=== PATIENT | female | born 1965 | race Asian ===

== ENCOUNTER 2021-06-28 00:10 | Emergency (ER) | payer MEDICAID, OTHER ==
[~2021-06-28] VITALS: Ht 167.6 cm; Wt 69.4 kg
[2021-06-28 00:15] VITALS: BP 157/98
--- NOTE | 2021-06-28 00:24 | NUR ---
PT AMBULATORY TO LOBBY TO A.W BED. URINE SPECIMEN COLLECTED
--- NOTE | 2021-06-28 00:44 | NUR ---
PT AMBULATED TO BED 9 WITH STEADY GAIT.
--- NOTE | 2021-06-28 00:46 | NUR ---
56 YO F BIB SELF WITH C/C OF ABD PAIN X2 DAYS 08/27. PT STATED PAIN RADIATES UP AND DOWN ABD AND SHE FEELS LIKE SHE NEEDS TO HAVE A BM. LAST BM WAS YESTERDAY. PT'S ABD IS DISTENDED, BOWEL SOUNDS PRESENT, DECREASED. DENIES TAKING MEDICATION. DENIES N/V/D. HX: DENIES RX: DENIES NKA
[2021-06-28 01:30] LABS: BASOPHILS % (AUTO) 0.3 % (0.0-2.0); EOSINOPHILS # (AUTO) 0.1 K/uL (0-0.4); EOSINOPHILS % (AUTO) 0.9 % (0.0-4.0); HEMATOCRIT 38.8 % (36-48); HEMOGLOBIN 12.7 g/dL (12.0-16.0); LYMPHOCYTES # (AUTO) 1.3 K/uL (2.5-16.5); LYMPHOCYTES % (AUTO) 8.6 % (20.5-51.1); MEAN CORPUSCULAR HEMOGLOBIN 28 pg (27-31); MEAN CORPUSCULAR HGB CONC 33 g/dL (33-37); MEAN CORPUSCULAR VOLUME 84.4 fL (80-94); MONOCYTES # (AUTO) 1.7 K/uL (0.8-1.0); MONOCYTES % (AUTO) 11.2 % (1.7-9.3); NEUTROPHILS # (AUTO) 11.9 K/uL (1.8-7.7); PLATELET COUNT (AUTO) 255 K/uL (140-450); RED CELL DISTRIBUTION WIDTH 13.1 % (11.6-13.7)
[2021-06-28 01:46] LABS: ALBUMIN 3.8 g/dL (3.4-5.0); ANION GAP 10.8 (8-16); CARBON DIOXIDE 29.5 mmol/L (21-32); CREATININE 0.9 mg/dL (0.6-1.3); POTASSIUM 4.3 mmol/L (3.5-5.1); TOTAL BILIRUBIN 0.8 mg/dL (0.0-1.0)
--- NOTE | 2021-06-28 01:48 | NUR ---
PT IS SITTING UP IN BED, IN STABLE CONDITION. BED LOCKED IN LOWEST POSITION, SIDE RAILS X1. ALL NEEDS MET AT THIS TIME.
--- NOTE | 2021-06-28 02:16 | NUR ---
PT TAKEN TO CT VIA WHEEL CHAIR.
--- NOTE | 2021-06-28 03:36 | NUR ---
PT IS SLEEPING. EQUAL RISE AND FALL OF CHEST WALL. OPENS TO SOUND. ALL NEEDS MET AT THIS TIME. BED LOCKED IN LOWEST POSITION, SIDE RAILS X1.
[2021-06-28] MEDS ORDERED: HYDR-5080 PO (05:59)
[2021-06-28] MEDS ORDERED: SULF-58 PO (05:59)
[2021-06-28 06:22] VITALS: BP 145/93
--- NOTE | 2021-06-28 06:22 | NUR ---
Patient discharged with v/s stable. Written and verbal after care instructions given and explained. Patient alert, oriented and verbalized understanding of instructions. Ambulatory with steady gait. All questions addressed prior to discharge. ID band removed. Patient advised to follow up with PMD. Rx of norco and bactrim given. Patient educated on indication of medication including possible reaction and side effects. Opportunity to ask questions provided and answered.
== END 2021-06-28 06:22 | disposition home or self-care (01) ==
LOC: MED 00:10
DX: K57.92 Diverticulitis of intestine, part unspecified, without perforation or abscess without bleeding (principal); R11.0 Nausea
CPT/HCPCS: 36415; 80053; 81002; 81025; 83690; 84484; 85025; 93005; 99285

== ENCOUNTER 2021-09-30 15:29 | Emergency (ER) | payer OTHER ==
[~2021-09-30] VITALS: Ht 167.6 cm; Wt 68.0 kg
[~2021-09-30 15:29] MED LIST: HYDR-5080 PO; SULF-58 PO
[2021-09-30 15:35] VITALS: BP 157/104
--- NOTE | 2021-09-30 15:49 | NUR ---
PT AMBULATED TO BED 04
--- NOTE | 2021-09-30 16:00 | NUR ---
pt c/o dysuria, frequency and hematuria since this am with pelvic pain. ua collected. pending er md dominguez.
--- NOTE | 2021-09-30 16:18 | NUR ---
ELEVATOR OPERATOR FREIGHT AT PT BEDSIDE FOR FURTHER EVALUATION.
[2021-09-30 16:27] LABS: BASOPHILS % (AUTO) 0.2 % (0.0-2.0); EOSINOPHILS # (AUTO) 0.1 K/uL (0-0.4); HEMATOCRIT 38.2 % (36-48); HEMOGLOBIN 12.6 g/dL (12.0-16.0); LYMPHOCYTES # (AUTO) 1.5 K/uL (2.5-16.5); LYMPHOCYTES % (AUTO) 12.9 % (20.5-51.1); MEAN CORPUSCULAR HEMOGLOBIN 27 pg (27-31); MEAN CORPUSCULAR HGB CONC 33 g/dL (33-37); MEAN CORPUSCULAR VOLUME 83.3 fL (80-94); MONOCYTES # (AUTO) 0.8 K/uL (0.8-1.0); MONOCYTES % (AUTO) 6.9 % (1.7-9.3); PLATELET COUNT (AUTO) 258 K/uL (140-450); RED BLOOD CELL COUNT(AUTO) 4.59 MIL/uL (4.20-5.40); RED CELL DISTRIBUTION WIDTH 13.2 % (11.6-13.7); WHITE BLOOD COUNT (AUTO) 11.4 K/uL (4.8-10.8)
[2021-09-30 16:30] LABS: APPEARANCE,URINE CLEAR (CLEAR); BILIRUBIN,URINE NEGATIVE (NEGATIVE); BLOOD, URINE 3+ (NEGATIVE); COLOR,URINE AMBER (YELLOW); LEUKOCYTE ESTERASE ,URINE 2+ (NEGATIVE); NITRITE, URINE POSITIVE (NEGATIVE); PH,URINE 6.5 (5.0-9.0); UGLUCOSE NEGATIVE (NEGATIVE)
--- NOTE | 2021-09-30 16:35 | NUR ---
US TECH AT PT BEDSIDE.
[2021-09-30 17:05] LABS: ANION GAP 11.1 (8-16); CARBON DIOXIDE 29.8 mmol/L (21-32); CREATININE 0.8 mg/dL (0.6-1.3); POTASSIUM 3.9 mmol/L (3.5-5.1); TOTAL BILIRUBIN 0.8 mg/dL (0.0-1.0)
[2021-09-30 17:27] LABS: RBC,URINE 50-80 /HPF (0-5); WBC,URINE 60-80 /HPF (0-5)
--- NOTE | 2021-09-30 18:18 | NUR ---
pt pending dispo. nad.
[2021-09-30] MEDS ORDERED: IBUP-2213 PO (18:40)
[2021-09-30] MEDS ORDERED: CEPH-588 PO (18:40)
[2021-09-30] MEDS ORDERED: cephALEXin 500 MG CAP PO ONE (18:45)
--- NOTE | 2021-09-30 18:50 | NUR ---
pt verbalizes dc instructions. no acute distress noted. stable on dc.
[2021-09-30 18:51] VITALS: BP 111/65
== END 2021-09-30 18:50 | disposition home or self-care (01) ==
LOC: MED 15:29
DX: N95.0 Postmenopausal bleeding (principal); D25.9 Leiomyoma of uterus, unspecified; R93.89 Abnormal findings on diagnostic imaging of other specified body structures; N39.0 Urinary tract infection, site not specified; D72.829 Elevated white blood cell count, unspecified; Z79.1 Long term (current) use of non-steroidal anti-inflammatories (NSAID); Z79.2 Long term (current) use of antibiotics; Z79.891 Long term (current) use of opiate analgesic
CPT/HCPCS: 36415; 76856; 80053; 81001; 84703; 85025; 87086; 99284; Q0092

== ENCOUNTER 2022-04-15 23:09 | Emergency (ER) | payer OTHER ==
[~2022-04-15] VITALS: Ht 167.6 cm; Wt 66.7 kg
[~2022-04-15 23:09] MED LIST changes: +CEPH-588 PO; +IBUP-2213 PO
[2022-04-15 23:20] VITALS: BP 135/81
--- NOTE | 2022-04-15 23:23 | NUR ---
KIM SARKAR EXAMINING PATIENT IN TRIAGE
[2022-04-15] MEDS ORDERED: MORPHINE SULFATE 4 MG/ML SYR IVP ONE (23:25)
[2022-04-15] MEDS ORDERED: ONDANSETRON 4 MG/2 ML VIAL IVP ONE (23:25)
--- NOTE | 2022-04-15 23:25 | NUR ---
PATIENT TO BED 6
--- NOTE | 2022-04-15 23:31 | NUR ---
57 yo/f presents to ed w c/o LLQ abdominal pain 810 non-rad intermitent x3 days worse upon palpation or movement, + diarrhea w slight blood. Pt denies any chest pain, sob, fevers/chills, n/v.pt pplaced in gown, breathing even and unlabored. will continue to monitor. pmh: denies allergies: denies
--- NOTE | 2022-04-15 23:31 | NUR ---
DEV MANAGER AT BEDSIDE
[2022-04-15 23:41] LABS: BASOPHILS % (AUTO) 0.3 % (0.0-2.0); EOSINOPHILS # (AUTO) 0.1 K/uL (0-0.4); EOSINOPHILS % (AUTO) 0.7 % (0.0-4.0); HEMATOCRIT 40.2 % (36-48); HEMOGLOBIN 13.2 g/dL (12.0-16.0); LYMPHOCYTES # (AUTO) 1.5 K/uL (2.5-16.5); LYMPHOCYTES % (AUTO) 10.7 % (20.5-51.1); MEAN CORPUSCULAR HEMOGLOBIN 27 pg (27-31); MEAN CORPUSCULAR HGB CONC 33 g/dL (33-37); MEAN CORPUSCULAR VOLUME 82.8 fL (80-94); MONOCYTES # (AUTO) 1.1 K/uL (0.8-1.0); MONOCYTES % (AUTO) 8.1 % (1.7-9.3); NEUTROPHILS # (AUTO) 11.4 K/uL (1.8-7.7); NEUTROPHILS % (AUTO) 80.2 % (42.2-75.2); PLATELET COUNT (AUTO) 345 K/uL (140-450); RED BLOOD CELL COUNT(AUTO) 4.86 MIL/uL (4.20-5.40); WHITE BLOOD COUNT (AUTO) 14.2 K/uL (4.8-10.8)
--- NOTE | 2022-04-15 23:41 | NUR ---
pt to ct via wheelchair.
[2022-04-15 23:55] LABS: ALBUMIN 4.1 g/dL (3.4-5.0); CARBON DIOXIDE 26.7 mmol/L (21-32); CREATININE 0.8 mg/dL (0.6-1.3); POTASSIUM 3.7 mmol/L (3.5-5.1); TOTAL BILIRUBIN 0.8 mg/dL (0.0-1.0)
--- NOTE | 2022-04-16 00:08 | NUR ---
pt unable to provide urine. will attempt soon.
--- NOTE | 2022-04-16 01:03 | NUR ---
pt reports pain is improving, will continue to monitor.
[2022-04-16] MEDS ORDERED: metroNIDAZOLE 500 MG/NS PREMIX 100 ML IV ONE (01:05)
[2022-04-16] MEDS ORDERED: LEVOFLOXACIN 500 MG/D5W PREMIX 100 ML IV ONE ×2 (01:05→03:16)
--- NOTE | 2022-04-16 01:10 | NUR ---
Dr. Solo examining patient.
[2022-04-16 01:13] LABS: APPEARANCE,URINE CLEAR (CLEAR); BILIRUBIN,URINE NEGATIVE (NEGATIVE); BLOOD, URINE 3+ (NEGATIVE); COLOR,URINE YELLOW (YELLOW); LEUKOCYTE ESTERASE ,URINE NEGATIVE (NEGATIVE); NITRITE, URINE NEGATIVE (NEGATIVE); UGLUCOSE NEGATIVE (NEGATIVE)
[2022-04-16 01:29] LABS: RBC,URINE 11-20 (MOD) /HPF (0-5); WBC,URINE 0-5 /HPF (0-5)
--- NOTE | 2022-04-16 01:41 | NUR ---
KAITLYNN SWAB COLLECTED AND SENT TO LAB.
[2022-04-16] MEDS ORDERED: AMPI500C49 PO (01:46)
[2022-04-16] MEDS ORDERED: MORPHINE SULFATE 4 MG/ML SYR IVP ONE (03:30)
--- NOTE | 2022-04-16 03:57 | NUR ---
Pt report given to KAITLIN PAUL. Transfer of care at this time.
--- NOTE | 2022-04-16 04:18 | NUR ---
PT APPEARS TO BE RESTING W EYES CLOSED IN SUPINE POSITION. BREATHING EVEN AND UNLABORED. PT CONNECTED TO MONITOR, WILL CONTINUE TO MONITOR.
--- NOTE | 2022-04-16 05:23 | NUR ---
[facility] TRANSPORT AT BEDSIDE
[2022-04-16 05:31] VITALS: BP 121/75
--- NOTE | 2022-04-16 05:31 | NUR ---
Patient to be transferred to [facility] ([place], [place]). Is being transferred due to private physician request, patient request, insurance request. Receiving facility has accepting physician and available space. ER physician has signed transfer form. Patient or responsible republican has agreed to transfer and signed form. Patient belongings inventoried and will be sent with patient. Copy of nursing notes, lab reports, EKG, Physicians Orders and X-rays to be sent with patient. Report called to hans ledesma at receiving facility. [facility] at bedside for pt transfer.
--- NOTE | 2022-04-16 05:34 | NUR ---
PT TAKEN BY [facility] TO [facility] ROOM [id number]
== END 2022-04-16 05:34 | disposition home or self-care (01) ==
LOC: MED 23:09
DX: R10.32 Left lower quadrant pain (principal); Z20.822 Contact with and (suspected) exposure to COVID-19; K57.32 Diverticulitis of large intestine without perforation or abscess without bleeding
CPT/HCPCS: 36415; 74176; 80053; 81001; 82150; 83605; 83690; 85025; 87040; 87086; 87426; 96365; 96367; 96375; 96376; 99285; J1956; J2270; J2405; J3490